=== PATIENT | female | born 1990 | race Caucasian/White ===

== ENCOUNTER 2020-12-09 12:31 | Inpatient (IN) | payer MEDICARE, MEDICAID, SELFPAY ==
[2020-12-09 12:47] VITALS: BMI 49.1
[2020-12-09 15:40] VITALS: BP 139/82; PULSE 89; RESP 18; TEMP 36.9; O2SAT 98
[2020-12-09] MEDS: albuterol 8 gm MDI 2 PUFF INHALATION (18:03)
[2020-12-09 18:04] VITALS: PULSE 104; RESP 16; O2SAT 98
[2020-12-09 18:21] VITALS: O2SAT 98
[2020-12-09] MEDS: OXcarbazepine 300 mg Tablet 450 MG PO (18:35)
[2020-12-09] MEDS: LORazepam 1 mg Tablet PO (18:35)
[2020-12-09] MEDS: nicotine 2 mg Gum BUCCAL (18:35)
[2020-12-09] MEDS: acetaminophen 325 mg Tablet 650 MG PO (18:36)
[2020-12-09] MEDS: apixaban 5 mg Tablet PO (21:10)
[2020-12-09] MEDS: hyDROXYzine 25 mg Capsule 50 MG PO (21:10)
[2020-12-09] MEDS: metoprolol succinate ER (24 HR) 25 mg Tablet PO (21:10)
[2020-12-09] MEDS: metoprolol succinate ER (24 HR) 50 mg Tablet PO (21:11)
[2020-12-09 21:18] VITALS: BP 115/63; PULSE 103; RESP 17; TEMP 37.1; O2SAT 96
[2020-12-09] MEDS: doxepin 25 mg Capsule PO (22:41)
[2020-12-09] MEDS: trazodone 50 mg Tablet PO (22:52)
[2020-12-10 06:00] VITALS: BP 115/73; PULSE 82; RESP 16; TEMP 36.6; O2SAT 98; BMI 50.2
[2020-12-10 07:04] VITALS: PULSE 111; RESP 18; O2SAT 99
[2020-12-10] MEDS: LORazepam 1 mg Tablet PO ×3 (08:04→21:44)
[2020-12-10] MEDS: OXcarbazepine 300 mg Tablet 450 MG PO ×2 (08:04→17:11)
[2020-12-10] MEDS: baclofen 10 mg Tablet PO ×2 (08:04→17:11)
[2020-12-10] MEDS: ziprasidone hcl 60 mg Capsule PO ×2 (08:04→17:11)
[2020-12-10] MEDS: metoprolol succinate ER (24 HR) 50 mg Tablet PO ×2 (08:06→17:11)
[2020-12-10] MEDS: ondansetron 4 MG Tablet PO ×2 (08:06→17:11)
[2020-12-10] MEDS: apixaban 5 mg Tablet PO ×2 (08:06→21:44)
[2020-12-10] MEDS: pantoprazole DR 40 mg Tablet PO (08:06)
[2020-12-10] MEDS: lisinopril 20 mg Tablet PO (08:06)
[2020-12-10] MEDS: hyDROXYzine 25 mg Capsule 50 MG PO ×3 (08:06→21:44)
[2020-12-10] MEDS: topiramate 25 mg Tablet PO (08:07)
[2020-12-10] MEDS: venlafaxine ER (24HR) 150 mg Capsule 300 MG PO (08:07)
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
[2020-12-10] MEDS: nicotine 2 mg Gum BUCCAL ×2 (08:18→19:46)
--- NOTE | 2020-12-10 08:20 | PC.NURSE ---
Metoprolol Pt confirmed that she takes 50mg of Metoprolol. Stopped 25mg.
[2020-12-10] MEDS: acetaminophen 325 mg Tablet 650 MG PO ×2 (12:21→18:36)
[2020-12-10 13:54] VITALS: BP 115/83; PULSE 101; RESP 16; TEMP 36.4; O2SAT 97
[2020-12-10] MEDS: loperamide 2 mg Capsule PO (15:46)
[2020-12-10] MEDS: loperamide 2 mg Capsule 4 MG PO (17:10)
[2020-12-10] MEDS: doxepin 25 mg Capsule PO (21:44)
[2020-12-10] MEDS: trazodone 50 mg Tablet PO (21:44)
[2020-12-10 22:00] VITALS: BP 105/63; PULSE 84; RESP 18; TEMP 36.7; O2SAT 97
[2020-12-11] MEDS: ondansetron 4 MG Tablet PO (08:56)
[2020-12-11] MEDS: apixaban 5 mg Tablet PO (08:57)
[2020-12-11] MEDS: pantoprazole DR 40 mg Tablet PO (08:57)
[2020-12-11] MEDS: LORazepam 1 mg Tablet PO ×2 (08:57→14:45)
[2020-12-11] MEDS: ziprasidone hcl 60 mg Capsule PO (08:57)
[2020-12-11] MEDS: hyDROXYzine 25 mg Capsule 50 MG PO ×2 (08:57→14:45)
[2020-12-11] MEDS: lisinopril 20 mg Tablet PO (08:57)
[2020-12-11] MEDS: baclofen 10 mg Tablet PO (08:58)
[2020-12-11] MEDS: OXcarbazepine 300 mg Tablet 450 MG PO (08:58)
[2020-12-11] MEDS: topiramate 25 mg Tablet PO (08:58)
[2020-12-11] MEDS: venlafaxine ER (24HR) 150 mg Capsule 300 MG PO (08:58)
[2020-12-11] MEDS: metoprolol succinate ER (24 HR) 50 mg Tablet PO (08:59)
[2020-12-11] MEDS: acetaminophen 325 mg Tablet 650 MG PO ×2 (09:01→13:19)
--- NOTE | 2020-12-11 09:02 | PC.NURSE ---
PRN ZOFRAN 4 MG GIVEN PO PER PT C/O NAUSEA. WILL CONT TO MONITOR
[2020-12-11] MEDS: nicotine 2 mg Gum BUCCAL (10:28)
[2020-12-11 12:53] VITALS: BP 138/83; PULSE 100; RESP 18; TEMP 36.6; O2SAT 96
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
[2020-12-11 17:10] VITALS: BP 138/83; PULSE 100; RESP 18; TEMP 36.6; O2SAT 96
== END 2020-12-11 17:17 | disposition home or self-care (01) | DRG 882 ==
PROVIDERS: Admitting Provider Psychiatry & Neurology Psychiatry; Visit Provider Psychiatry & Neurology Psychiatry
DX: F43.10 Post-traumatic stress disorder, unspecified (principal); R45.851 Suicidal ideations; Z68.43 Body mass index [BMI] 50.0-59.9, adult; F32.9 Major depressive disorder, single episode, unspecified; F41.9 Anxiety disorder, unspecified; F17.210 Nicotine dependence, cigarettes, uncomplicated; F10.10 Alcohol abuse, uncomplicated; Z81.8 Family history of other mental and behavioral disorders; I10 Essential (primary) hypertension; Z86.711 Personal history of pulmonary embolism; E66.01 Morbid (severe) obesity due to excess calories; Z63.4 Disappearance and death of family member; Z79.01 Long term (current) use of anticoagulants
CPT/HCPCS: 94640; 94664; J3535; Q0162